=== PATIENT | female | born 1945 | race Caucasian/White ===

== ENCOUNTER → 2019-05-02 14:13 | Outpatient (CLI) | payer MEDICARE, SELFPAY ==
--- NOTE | ~2019-05-02 | DEXA_ITS ---
Bone Density Report Name: Uma Burnette Age: 74 Sex: Female Ethnicity: White Date of : 1945 Indication: osteopenia; height loss; postmenopausal Referring Provider: KODY MCKEON Study: Bone densitometry was performed. Exam Date: May 02, 2019 Accession number: [id number] Bone Density: Region BMD T-score Z-score Classification AP Spine (L1, L2) 0.877 -0.9 1.2 Normal Femoral Neck (Left) 0.711 -1.2 0.7 Osteopenia Total Hip (Left) 0.864 -0.6 1.0 Normal Femoral Neck (Right) 0.700 -1.3 0.6 Osteopenia Total Hip (Right) 0.786 -1.3 0.3 Osteopenia Total Hip Mean 0.825 -1.0 0.7 Normal World Health Organization criteria for BMD impression classify patients as: Normal (T-score at or above -1.0), Osteopenia (T-score between -1.0 and -2.5), or Osteoporosis (T-score at or below -2.5). 10-year Fracture Risk(1): Major Osteoporotic Fracture 10% Hip Fracture 1.5% Reported Risk Factors: [place] (), Neck BMD=0.700, BMI=25.6 (1) FRAX(R) Version 3.08. Fracture probability calculated for an untreated patient. Fracture probability may be lower if the patient has received treatment. Previous Exams: Region Exam Age BMD T-score BMD Change BMD Change Date g/cm2 vs Baseline vs Previous AP Spine(L1, L2) 05/02/2019 74 0.877 -0.9 -0.055* 0.001 10/15/2016 71 0.877 -0.9 -0.055* -0.009 05/11/2012 67 0.886 -0.8 -0.046* -0.068* 12/10/2009 64 0.954 -0.2 0.022 0.045* 08/30/2007 62 0.909 -0.6 -0.023 0.010 05/25/2006 61 0.899 -0.7 -0.033* -0.033* 02/05/2004 58 0.932 -0.4 Total Hip(Left) 05/02/2019 74 0.864 -0.6 -0.147* 0.011 10/15/2016 71 0.853 -0.7 -0.158* -0.062* 05/11/2012 67 0.915 -0.2 -0.096* 0.005 12/10/2009 64 0.910 -0.3 -0.101* 0.012 08/30/2007 62 0.898 -0.4 -0.113* -0.007 05/25/2006 61 0.904 -0.3 -0.107* -0.107* 02/05/2004 58 1.011 0.6 Total Hip(Right) 05/02/2019 74 0.786 -1.3 -0.137* 0.000 10/15/2016 71 0.787 -1.3 -0.137* -0.083* 05/11/2012 67 0.869 -0.6 -0.054* 0.033* 12/10/2009 64 0.837 -0.9 -0.087* -0.001 08/30/2007 62 0.838 -0.9 -0.085* 0.019 05/25/2006 61 0.819 -1.0 -0.104* -0.104* 02/05/2004 58 0.923 -0.2 *Denotes significance at 95% confidence lev
--- NOTE | ~2019-05-02 | MM_ITS ---
EXAMINATION: MM screening dexter BI w wagner HISTORY: Screening mammogram TECHNIQUE: Craniocaudal and mediolateral oblique 3-D tomosynthesis images were obtained and synthetic 2-D images were generated. CAD analysis was submitted and interpreted. COMPARISON: 01/27/2018, 10/15/2016, 08/27/2015 bilateral digital screening mammogram examinations BREAST PARENCHYMAL COMPOSITION: There are scattered areas of fibroglandular density. FINDINGS: There is no evidence of suspicious mass, calcification, or architectural distortion to sugg est malignancy in either breast. There has been no suspicious interval change. IMPRESSION: 1. No mammographic evidence of malignancy. 2. Recommend routine screening mammography in one year. BI-RADS Category 1: Negative Reviewed, dictated and finalized at location A. 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
== END ==
DX: M85.89 Other specified disorders of bone density and structure, multiple sites (principal); N95.9 Unspecified menopausal and perimenopausal disorder; Z12.31 Encounter for screening mammogram for malignant neoplasm of breast
CPT/HCPCS: 77063; 77067; 77080

== ENCOUNTER → 2020-10-15 15:04 | Outpatient (CLI) | payer MEDICARE, SELFPAY ==
--- NOTE | ~2020-10-15 | MM_ITS ---
EXAMINATION: MM screening dexter BI w wagner HISTORY: Screening mammogram TECHNIQUE: Craniocaudal and mediolateral oblique 3-D tomosynthesis images were obtained and synthetic 2-D images were generated. CAD analysis was submitted and interpreted. COMPARISON: 05/02/2019, 01/27/2018 [place] 10/15/2016 bilateral digital screening mammogram examinations BREAST PARENCHYMAL COMPOSITION: There are scattered areas of fibroglandular density. FINDINGS: There is no evidence of suspicious mass, calcification, or architectural distortion to sugg est malignancy in either breast. There has been no suspicious interval change. IMPRESSION: 1. No mammographic evidence of malignancy. 2. Recommend routine screening mammography in one year. BI-RADS Category 1: Negative Reviewed, dictated and finalized at location A.
== END ==
PROVIDERS: PCP Family Medicine; Visit Provider Family Medicine
DX: Z12.31 Encounter for screening mammogram for malignant neoplasm of breast (principal)
CPT/HCPCS: 77063; 77067

== ENCOUNTER 2021-09-06 13:19 | Emergency (ER) | payer MEDICARE, SELFPAY ==
--- NOTE | 2021-09-06 13:25 | ED.FEMALEGU ---
HPI - Female Genitourinary General Chief complaint: Urogenital-Female Stated complaint: UTI Time Seen by Provider: 09/06/21 13:26 Source: patient Mode of arrival: ambulatory Limitations: no limitations History of Present Illness HPI Narrative: Ms. Burnette is a 76-year-old female patient presenting to the clinic today with possible UTI x4 to 5 days She reports she is having some burning frequency and incontinence. She denies any fever or chills. She does have some back pain however she does have a history of arthritis. Related Data Home Medications Medication Instructions Recorded Confirmed colestipol 1 gram tablet tablet PO 09/06/21 enalapril maleate 20 mg tablet tablet 09/06/21 lovastatin 20 mg tablet tablet 09/06/21 nebivolol 10 mg tablet tablet 09/06/21 omeprazole 20 mg capsule,delayed cap 09/06/21 release Allergies Allergy/AdvReac Type Severity Reaction Status Date / Time PCN Allergy Mild Uncoded 07/14/06 12:06 Review of Systems Review of Systems: Pertinent positives per HPI. Patient denies any fever, chills, rash, headache, visual changes, dizziness, cough, runny nose, sore throat, shortness of breath, chest pain, palpitations, nausea, vomiting, diarrhea, constipation, abdominal pain, or any urinary issues. PMFSH Comments At the time of my signature, I reviewed and agree with the nursing past medical, surgical, social, and family history. There is no relevant family history pertinent to the patient complaint. Exam Narrative: General: Well-developed, well nourished, in no apparent distress. Head: Normocephalic, atraumatic. Cardio: Regular rate and rhythm, s1 and s2 normal, no murmur appreciated. Resp: Clear to auscultation bilaterally, no rhonchi, rales, wheezing or rubs. Abdomen: Soft, pliable, bowel sounds present in all quadrants, non-tender to palpation, no organomegly, no CVAT tenderness. Course Course Emergency Course: Portions of this record may have been created with voice recognition software. Level of Care: Express Care Visit Vital Signs Vital signs: Vital signs reviewed MDM - Female Genitourinary MDM Narrative Medical decision making narrative: At the time of visit patient was resting comfortably on the exam table. UA was positive for 1+ leukocyte and trace of blood. I will go ahead and give a course of Macrobid and supportive measures were discussed with the patient she voiced understanding of discharge instructions and agrees to the treatment plan. Differential Diagnosis Differential diagnosis: Likely urinary tract infection and cystitis Discharge Plan Discharge Clinical Impression: Urinary tract infection Qualifiers: Urinary tract infection type: acute cystitis Hematuria presence: with hematuria Qualified Code(s): N30.01 - Acute cystitis with hematuria Patient Disposition: Home, Self-Care Condition: Stable Instructions: Antibiotic Form, Urinary Tract Infection in Women (ED) Additional Instructions: Macrobid as prescribed increase fluids and stay well hydrated Wipe front to back. May use wet wipes. Avoid tub baths If sexually active- pee before and after intercourse. Wear cotton panties Avoid tight clothing up against the genitals Follow up with your PCP in 1 week if symptoms persist. Prescriptions: New nitrofurantoin monohyd/m-cryst [Macrobid] 100 mg capsule 100 mg PO Q12H 7 Days Qty: 14 0RF Rx Instructions: must administer with a meal/food No Action enalapril maleate 20 mg tablet omeprazole 20 mg capsule,delayed release(DR/EC) lovastatin 20 mg tablet colestipol 1 gram tablet PO nebivolol 10 mg tablet Follow-up/Referrals: Osmin,Shagufta Woods DO [Primary Care Provider] - Time of Disposition: 13:38 Quality NIHSS Nursing Documentation ED NIHSS nursing documentation: reviewed/agree
[2021-09-06 13:36] VITALS: BP 154/74; PULSE 58; RESP 16; TEMP 37.3; O2SAT 99
== END 2021-09-06 13:51 | disposition home or self-care (01) ==
PROVIDERS: Emergency Provider Nurse Practitioner Family; PCP Family Medicine
DX: N30.01 Acute cystitis with hematuria (principal); E78.00 Pure hypercholesterolemia, unspecified; I10 Essential (primary) hypertension; K21.9 Gastro-esophageal reflux disease without esophagitis; M19.90 Unspecified osteoarthritis, unspecified site
CPT/HCPCS: 81003; 87077; 87086; 87186; 99213; G0463

== ENCOUNTER 2022-01-17 11:28 | Emergency (ER) | payer MEDICARE, SELFPAY ==
[2022-01-17 11:45] VITALS: BP 113/83; PULSE 78; RESP 18; TEMP 37.3; O2SAT 99
--- NOTE | 2022-01-17 12:42 | ED.GENADULT ---
HPI - General Adult General Chief complaint: Unspecified Stated complaint: Not feeling well Time Seen by Provider: 01/17/22 12:31 Source: patient and RN notes reviewed Mode of arrival: ambulatory Limitations: no limitations History of Present Illness HPI narrative: 76-year-old female presents to the [facility] with ?generalized not feeling well?. Patient states that she was diagnosed started an antibiotic 3 days ago. Has an appointment with her primary care provider on Thursday. Related Data Home Medications Medication Instructions Recorded Confirmed colestipol 1 gram tablet tablet PO 09/06/21 enalapril maleate 20 mg tablet tablet 09/06/21 lovastatin 20 mg tablet tablet 09/06/21 nebivolol 10 mg tablet tablet 09/06/21 omeprazole 20 mg capsule,delayed cap 09/06/21 release amlodipine 5 mg tablet mg 01/17/22 famotidine 20 mg tablet mg 01/17/22 Allergies Allergy/AdvReac Type Severity Reaction Status Date / Time PCN Allergy Mild Uncoded 07/14/06 12:06 Review of Systems Review of Systems: All systems reviewed & are unremarkable except as noted in HPI and below Constitutional: Constitutional: Reports as per HPI, Denies chills, Reports fatigue and Denies fever(s) Eyes: Eyes: Reports no additional eye complaints ENT: Reports system reviewed and no additional complaints, except as documented Cardiovascular: Cardiovascular: Reports no additional cardiovascular complaints Respiratory: Respiratory: Reports no additional respiratory complaints Gastrointestinal: Gastrointestinal: Reports no additional gastrointestinal complaints Musculoskeletal: Musculoskeletal: Reports no additional musculoskeletal complaints Integumentary/Breasts: Skin/Breast: Reports system reviewed and no additional complaints, except as docu Neurologic: Reports system reviewed and no additional complaints, except as documented Psychiatric: Psychiatric: Reports no additional psychiatric complaints Allergic/Immunologic: Allergic/Immunologic: Reports no additional allergic/immunologic complaints PMFSH Comments At the time of my signature, I reviewed and agree with the nursing past medical, surgical, social, and family history. There is no relevant family history pertinent to the patient complaint. Exam Const: General: healthy appearing, no acute distress, alert and well nourished Nutritional Appearance: well nourished Orientation/consciousness: patient oriented x3 Limitations: no limitations HENMT: Head: normal to inspection Ears: external ears normal, TM's normal bilaterally and EAC's normal Face/Nose/Sinus: Normal external nose present and Normal nares present Face and sinus: normal facial exam Mouth: Yes Normal oral and palatal mucosa present, Yes lip normal and Yes moist mucous membranes Throat: posterior oropharynx normal and uvula midline Eyes: General: appearance normal, both eyes and all related structures Conjunctivae: conjunctivae normal Pupils: Equal, round and reactive pupils present Neck: Neck: normal visual inspection, no lymphadenopathy and no meningeal signs Chest: Chest palpation & inspection: normal inspection of the chest Resp: Effort & Inspection: normal respiratory effort and no use of accessory muscles Auscultation: clear to auscultation bilaterally, no crackles, no rales, no rhonchi and no wheezes Cardio: Rate: regular rate Rhythm: regular rhythm GI: GI Palp: Yes Soft to palpation and No Tenderness to palpation present (GI) Back/Spine/Pelvis: Cervical Spine: normal cervical lordosis Thoracic/Lumbar Spine: thoracic and lumbar spine normal to inspection Skin: General skin exam: normal color Rashes: no rashes Wounds: no wounds Neuro: General: patient oriented x3, moves all extremities, no meningeal signs and no focal motor deficits Cranial nerves: Yes Equal, round and reactive pupils present Speech: normal speech Gait exam (Neuro): Normal gait present Extrem: General: normal to inspection, full R
== END 2022-01-17 13:10 | disposition home or self-care (01) ==
PROVIDERS: Emergency Provider Nurse Practitioner; PCP Family Medicine
DX: R53.83 Other fatigue (principal)
CPT/HCPCS: 87804; 99213; G0463

== ENCOUNTER → 2022-03-04 16:15 | Outpatient (CLI) | payer MEDICARE, SELFPAY ==
--- NOTE | ~2022-03-04 | MM_ITS ---
EXAMINATION: MM screening dexter BI w wagner HISTORY: Screening TECHNIQUE: Craniocaudal and mediolateral oblique 3-D tomosynthesis images were obtained and synthetic 2-D images were generated. CAD analysis was submitted and interpreted. COMPARISON: Comparison to multiple prior studies sequentially, with oldest reviewed study dated 04/04. BREAST PARENCHYMAL COMPOSITION: There are scattered areas of fibroglandular density. FINDINGS: There is no evidence of suspicious mass, calcification, or architectural distortion to sugg est malignancy in either breast. There has been no suspicious interval change. IMPRESSION: 1. No mammographic evidence of malignancy. 2. Recommend routine screening mammography in one year. BI-RADS Category 1: Negative Reviewed, dictated and finalized at location B. ULTING PSYCHOLOGIST
== END ==
PROVIDERS: PCP Family Medicine; Visit Provider Family Medicine
DX: Z12.31 Encounter for screening mammogram for malignant neoplasm of breast (principal)
CPT/HCPCS: 77063; 77067